=== PATIENT | female | born 1950 | race Caucasian/White ===

== ENCOUNTER → 2017-11-17 | Outpatient (CLI) | payer MEDICARE, OTHER ==
[~2017-11-17] MED LIST: AMOX-559 PO; AUG500 PO; BEN10 PO; BENA5TAB32 PO; CHOL100058 PO; CYCL1DRO6 OU; ERGO2000 PO; ESTR-33 PO; ESTR0.62 PO; FLU45SYR17 IM; FLU45SYR25 IM ONLY; HCTZ25 PO; HYDR-2966 PO; LOR5 PO; LOR5/325 PO; MELO-207 PO; METF-410 PO; METH4TAB66 PO; OSE75 PO; PNEU0.5D3 IM; POTA2.5T7 PO; POTA20TA85 PO; PRE20 PO; RANI-324 PO; SPIR1TAB28 PO; TRAZ-156 PO; ZOST19404 SQ
--- NOTE | 2017-11-17 16:44 | RADIOLOGY IMAGING REPORT ---
[place] [facility] [place] NAME: Ferny Krause : 1950 MR: [id number] V: [id number] EXAM DATE: ORDERING PHYSICIAN: SANCHEZ VELA TECHNOLOGIST: Location: [facility] Patient: Ferny Krause : 1950 Visit/Account:[id number] Date of Sevice: 11/17/2017 DEXA Scan Clinical history: Asymptomatic postmenopausal state. Comparison: DEXA scan from 07/01/2007. LUMBAR SPINE: The bone mineral density (BMD) measured from L1-L4 correlates with a Z-score of 2.2 and a T-score of 1.4 which is Normal as defined by the World Health Organization. The corresponding risk of fracture in the lumbar spine is Not increased compared with a young adult reference population. This value torres s increased by 2.4 % since the prior study. More than 5% change is considered significant. HIP: Bone mineral density (BMD) measured in the LEFT total hip region correlates with a Z-score 0.8 and a T-score of zero which is normal as defined by the World Health Organization. The corresponding risk of fracture in the hip is Not i ncreased compared to a young adult reference population. This value has decreased by 6.7 % since the prior study. More than 5% change is considered significant. T score left femoral neck -1.3 Bone mineral density (BMD) measured in the Femoral Neck region measures 0.851 g/cm?. IMPRESSION: 1. Lumbar spine: Normal. There has been 2.4% increase in the bone mineral density since the previou s exam. 2. Left Total Hip: Normal. There has been 6.7% decrease in the bone mineral density since the previ ous exam. 3. Femoral Neck: Bone Mineral Density is 0.851 g/cm? The next DEXA scan of this patient should include the following sites: L1-L4 and the left hip. FRAX? WHO Fracture Risk Assessment Tool link: <http://www.shef.ac.uk/FRAX/tool.jsp?locationValue=9> PLEASE NOTE: 1) The World Health Organization defines low BMD as follows: T-score Normal > -1 Osteopenia < -1 and > -2.5 Osteoporosis < -2.5 without fractures Established osteoporosis < -2.5 with fractures 2) In general, you may wish to consider: Diagnosis Treatment Follow-up DEXA Normal BMD Prevention 2-3 years Osteopenia Prevention/therapy 1-2 years Osteoporosis Therapy Yearly 3) Fracture risk estimated from the T-score is more accurate for vertebral fractures (often spontane ous) than for hip fractures. Report Dictated By: Danita Reyes MD at 11/17/2017 4:39 PM Report E-Signed By: Danita Reyes MD at 11/17/2017 4:40 PM WSN:[email or web address]
--- NOTE | 2017-12-01 09:55 | RADIOLOGY IMAGING REPORT ---
FACILITY: [facility] - [place] PATIENT NAME: PERI HERNANDEZ : [id number] MR: [id number] V: [id number] EXAM DATE: ORDERING PHYSICIAN: SANCHEZ VELA TECHNOLOGIST: Rebekah Polanco PROCEDURE:BILATERAL DIGITAL SCREENING MAMMOGRAM WITH CAD ASSISTED INTERPRETATION AND 3D BREAST TOMOSYNTHESIS. COMPARISON:Prior mammograms dated 12/23/12. INDICATIONS:SCREENING FINDINGS: Moderately heterogeneous fibroglandular tissue is seen throughout the breasts. The parenchymal pattern has remained stable when allowing for difference in mammographic technique and patient positioning. There is no evidence of malignant appearing mass, malignant appearing calcification or secondary sign of malignancy in either breast. DIAGNOSTIC CATEGORY 2--BENIGN FINDING. RECOMMENDATIONS: ROUTINE MAMMOGRAM AND CLINICAL EVALUATION. IMPRESSION: BI-RADS 2: No significant abnormality seen. Images were reviewed with R2CAD and 3D breast tomosynthesis. Dictated by: Danita Reyes M.D. on 11/17/2017 at 16:27 Transcribed by: SHABNAM on 11/18/2017 at 15:58 Approved by: Danita Reyes M.D. on 12/01/2017 at 9:54 [facility]
== END ==
LOC: MAMO 01:46
PROVIDERS: ATTEND Nurse Practitioner Family
DX: Z13.820 Encounter for screening for osteoporosis (principal); Z12.31 Encounter for screening mammogram for malignant neoplasm of breast; Z78.0 Asymptomatic menopausal state; I10 Essential (primary) hypertension; E11.9 Type 2 diabetes mellitus without complications
CPT/HCPCS: 36415; 77063; 77067; 77080

== ENCOUNTER → 2017-11-18 | Outpatient (CLI) | payer MEDICARE, OTHER ==
[2017-11-18 08:54] LABS: LDL CHOLESTEROL 141 mg/dl
== END ==
LOC: LAB 08:09
PROVIDERS: ATTEND Nurse Practitioner Family
DX: I10 Essential (primary) hypertension (principal); E11.9 Type 2 diabetes mellitus without complications
CPT/HCPCS: 36415; 82040; 82247; 82310; 82374; 82435; 82465; 82565; 82947; 83036; 83718; 84075; 84132; 84155; 84295; 84450; 84460; 84478; 84520

== ENCOUNTER → 2018-07-06 | Outpatient (CLI) | payer MEDICARE, OTHER ==
[~2018-07-06] MED LIST changes: +ASCO-182 PO; +BENA10TA55 PO; -BENA5TAB32 PO; +BENA5TAB33 PO; +CALC600T63 PO; +CARB15DR72 OP; +CHOL200074 PO; +DICL100G39 TOP; -METF-410 PO; +METF-450 PO; +OXYGENHOME INH; -RANI-324 PO; +RANI-366 PO; -TRAZ-156 PO; +TRAZ50TA34 PO
[2018-07-06 09:05] LABS: PLATELET COUNT, AUTOMATED 304 K/uL (150-450)
--- NOTE | 2018-07-06 09:19 | EKG ---
FACILITY: [facility] [place] PATIENT NAME: PERI HERNANDEZ : [id number] MR: [id number] V: [id number] EXAM DATE: ORDERING PHYSICIAN: JUAN MCKINNEY TECHNOLOGIST: YNES Caldwell Reason : PRE-OP KNEE Blood Pressure : / mmHG Vent. Rate : 070 BPM Atrial Rate : 070 BPM P-R Int : 176 ms QRS Dur : 086 ms QT Int : 396 ms P-R-T Axes : 028 -13 019 degrees QTc Int : 427 ms Sinus rhythm Left axis deviation Poor R wave progression anteriorly No previous ECGs available Confirmed by KACI NEWMAN ([id number]) on 07/06/2018 11:17:06 AM Referred By: HANK Confirmed By:KACI NEWMAN
== END ==
LOC: LAB 08:36
PROVIDERS: ATTEND Orthopaedic Surgery
DX: M17.12 Unilateral primary osteoarthritis, left knee (principal); Z01.812 Encounter for preprocedural laboratory examination
CPT/HCPCS: 36415; 81001; 82040; 82247; 82310; 82374; 82435; 82565; 82947; 84075; 84132; 84155; 84295; 84450; 84460; 84520; 85025; 93005

== ENCOUNTER 2018-07-20 00:10 | Inpatient (IN) | payer MEDICARE, OTHER ==
[2018-07-19 13:50] LABS: INR 1.01
[~2018-07-20] VITALS: Ht 162.6 cm; Wt 89.8 kg
[2018-07-20] VITALS (13 sets, daily range): BP systolic 91–156; BP diastolic 49–92; Ht 162.6 cm; Wt 89.8 kg
[~2018-07-20 00:10] MED LIST changes: +NYST15PO4 TP
--- NOTE | 2018-07-20 07:53 | LEVENE H&P ---
DATE OF ADMISSION: July 20, 2018 IDENTIFICATION/CHIEF COMPLAINT The patient is a 68-year-old woman with a chief complaint of left knee pain. HISTORY OF PRESENT ILLNESS Sania has a longstanding history of knee arthritis progressively painful and debilitating, refractory to conservative care. Surgery is indicated to relieve symptoms after failure of nonoperative measures. PAST MEDICAL HISTORY 1. Occasional skipped heartbeat. 2. Hypertension, controlled on medication. 3. Sleep apnea. 4. Nighttime oxygen use. PAST SURGICAL HISTORY 1. Foot operation. 2. Cardiac catheterization. 3. Hysterectomy. FAMILY HISTORY Notable for mother and father both with cancer and father with heart disease. SOCIAL HISTORY Negative for tobacco and alcohol use. REVIEW OF SYSTEMS Negative. CURRENT MEDICATIONS 1. Benazepril 10 mg p.o. every day. 2. Spironolactone 0.5 mg p.o. 1/2 tablet daily. 3. Mobic one daily. 4. Various vitamins. 5. Kvcd-udy-kbxaetd Zantac one p.o. every day. ALLERGIES No known drug allergies. PHYSICAL EXAMINATION GENERAL: This is a healthy female. HEENT: Normocephalic, atraumatic. NECK: Supple. LUNGS: Clear. HEART: Regular. ABDOMEN: Soft. ORTHOPEDIC EXAMINATION Left knee is grossly stable with fusion present. Crepitus is noted. Extensor function is intact. Skin condition is good. She is stiffened on range. Calves are nontender. Neurovascular function is intact distally. Radiographs demonstrate end-stage knee arthritis. ASSESSMENT Left knee end-stage degenerative joint disease progressively painful and debilitating, refractory to conservative care. PLAN Per patient request, we are going to proceed with total knee arthroplasty. The nature of the procedure, the risks, benefits, the anticipated rehabilitative course were reviewed. All of the patient's questions were answered. Risks of the procedure include but are not limited to , major medical or anesthetic complication, infection, neurovascular injury, blood transfusion, stiffness, scarring, fracture or tendon rupture, instability, implant loosening, migration or failure, persistent or recurrent pain or symptoms, need for additional surgery and other unforeseen. She understands and wishes to proceed. A signed permit is placed in the chart. No guarantees are given or implied. RACHEL
[2018-07-20] MEDS ORDERED: fentaNYL CITR 100 MCG/2 ML AMP ONE (08:15)
[2018-07-20] MEDS ORDERED: PROPOFOL EMUL(*) 10MG/ML 20 ML 20 ML ONE (08:15)
[2018-07-20] MEDS ORDERED: DEXAMETHASONE SOD 4 MG/ML VIAL ONE (08:15)
[2018-07-20] MEDS ORDERED: LIDOCAINE MPF 1% 5 ML VIAL ONE (08:15)
[2018-07-20] MEDS ORDERED: ONDANSETRON 4 MG/2 ML VIAL ONE (08:15)
[2018-07-20] MEDS ORDERED: KETAMINE HCL 200 MG/20 ML MDV ONE (08:20)
[2018-07-20] MEDS ORDERED: cloNIDine EPIDUR INJ 100MCG/ML 40 MCG, ROPIVACAINE 0.5% 20 ML VIAL 25 ML, EPINEPHrine H... INJ ONE (08:45)
[2018-07-20] MEDS ORDERED: CELECOXIB 200 MG CAP PO ONE (08:45)
[2018-07-20] MEDS ORDERED: ceFAZolin(*) 2GM/D5W 50ML 50 ML IVPB ONE (08:45)
[2018-07-20] MEDS ORDERED: MIDAZOLAM 2 MG/2 ML VIAL IVP PRN (08:45)
[2018-07-20] MEDS ORDERED: LIDOCAINE/SOD BICARB 8.4% SYR ID ONE (08:45)
[2018-07-20] MEDS ORDERED: FAMOTIDINE 20 MG TAB PO ONE (08:45)
[2018-07-20] MEDS ORDERED: PREGABALIN 75 MG CAPSULE PO ONE (08:45)
[2018-07-20] MEDS ORDERED: ACETAMINOPHEN 500 MG TAB PO ONE (08:45)
[2018-07-20] MEDS ORDERED: NORMOSOL R SOLN(*) 1000 ML BAG 1,000 ML IV PRN ×2 (08:45→15:05)
[2018-07-20] MEDS ORDERED: TRANEXAMIC AC 1000 MG/10ML SDV 1,000 MG in DEXTROSE 5% 50 ML BAG 50 ML IV ONE (08:45)
[2018-07-20] MEDS ORDERED: VANCOMYCIN 1 GM VIAL ONE (09:01)
--- NOTE | 2018-07-20 14:04 | RADIOLOGY IMAGING REPORT ---
FACILITY: [facility] [place] PATIENT NAME: Ferny Krause : 1950 MR: [id number] V: [id number] EXAM DATE: ORDERING PHYSICIAN: JUAN MCKINNEY TECHNOLOGIST: Location: [facility] Patient: Ferny Krause : 1950 Visit/Account:[id number] Date of Sevice: 07/20/2018 Exam type: KNEE LIMITED LEFT History: post-op placement Comparison: None. Findings: Two views the left knee demonstrate a left knee arthroplasty in good anatomic alignment. Soft tissue gas and skin emani project over the anterior aspect of the postoperative knee IMPRESSION: 1. As above Report Dictated By: Danita Reyes MD at 07/20/2018 1:59 PM Report E-Signed By: Danita Reyes MD at 07/20/2018 2:00 PM WSN:[email or web address]
[2018-07-20] MEDS ORDERED: TRAZ50TA34 PO (14:06)
[2018-07-20] MEDS ORDERED: traZODone HCL 50 MG TAB PO PRN (14:45)
--- NOTE | 2018-07-20 14:53 | Hospitalist Consultation ---
History of Present Illness Requesting Physician Dr. Desai Reason for Consult Medical Management Chief Complaint s/p left total knee replacement History of Present Illness She was admitted s/p left total knee replacement. It is reported the surgery went well and without complication. History Problems: (1) Sleep apnea Status: Chronic (2) Hypertension, benign Status: Chronic (3) Insomnia Status: Chronic Home Meds Active Scripts Meloxicam (MELOXICAM) 15 Mg Tablet, 1 TAB PO QDAY, #90 TAB 4 Refills Prov:JOSÉ MIGUEL BRADSHAW MD 07/08/18 Benazepril Hcl (BENAZEPRIL HCL) 10 Mg Tab, 10 MG PO QDAY for 90 Days, #90 TAB Prov:JOSÉ MIGUEL BRADSHAW MD 04/28/18 Spironolact/Hydrochlorothiazid (SPIRONOLACTONE-HCTZ 25-25 TAB) 1 Each Tablet, 0.5 TAB PO QAM, #90 TAB 4 Refills Prov:JOSÉ MIGUEL BRADSHAW MD 04/28/18 Reported Medications Trazodone Hcl (TRAZODONE HCL) 50 Mg Tablet, 0.5-1 TAB PO QHS PRN for INSOMNIA 07/20/18 Oxygen (OXYGEN) Inha, 2 L INH HS, L Via NC 04/28/18 Ascorbic Acid (VITAMIN C) 500 Mg Tablet, 1 TAB PO PRN, TAB 04/28/18 Cholecalciferol (Vitamin D3) (VITAMIN D-3) 2,000 Unit Capsule, 1 CAP PO DAILY, CAPSULE 04/28/18 Carboxymethylcellulose Sodium (REFRESH TEARS) 15 Ml Drops, 1 DROP OP PRN 04/28/18 Ranitidine Hcl (ZANTAC) 150 Mg Tablet, 1 TAB PO QHS 06/22/17 Discontinued Reported Medications Calcium Carbonate (CALCIUM) 600 Mg Tablet, 1 TAB PO DAILY 04/28/18 Discontinued Scripts Nystatin 100,000 Unit/Gm Top Powder (NYSTATIN 100,000 UNIT/GM TOP POWDER) 15 Gm Powder, 15 GM TP BID for 30 Days, #1 TUBE 4 Refills Prov:JOSÉ MIGUEL BRADSHAW MD 07/08/18 Diclofenac Sodium 1% Gel (VOLTAREN 1% GEL) 100 Gm Gel..gram., 2 GM TOP TID for 30 Days, #1 TUBE Prov:JOSÉ MIGUEL BRADSHAW MD 05/17/18 Trazodone Hcl (TRAZODONE HCL) 50 Mg Tablet, 0.5-1 TAB PO QHS, #30 TAB 5 Refills Prov:SANCHEZ VELA APRN [employer] 06/22/17 Allergies: Coded Allergies: No Known Drug Allergies (Verified , 07/12/18) Patient History: Bone cancer FATHER, , Age:76 (Heart cancer) Diabetes mellitus (DM) MOTHER, , Age:76 FH: lung cancer MOTHER, , Age:76 Heart cancer FATHER, , Age:76 Hypertension BROTHER OR SISTER, Age:unk Hx Smoking: No Smoking Status: Never Smoker Caffeine Intake: Coffee Caffeine/Cups Per Day: 1 Hx Alcohol Use: No Hx Substance Use Disorder: No Social Drug Use: Never History of IV Drug Use: No Review of Systems All Systems Reviewed/Normal: Yes, Except as Noted Exam Vital Signs Vital Signs Date Time Temp Pulse Resp B/P (MAP) Pulse Ox O2 Delivery O2 Flow Rate FiO2 07/20/18 13:41 92 Nasal Cannula 2.0 07/20/18 13:37 97.5 62 18 117/70 (86) General Appearance: Alert, Awake, No Acute Distress, Afebrile Neuro: No Gross deficits Cardiovascular: Regular Rate and Rhythm Respiratory: No Respiratory Distress, Clear to Auscultation GI: Abd Soft and Non-Tender Psych: Alert & Oriented X3, Appropriate Mood & Affect Assessment and Plan Problems: (1) Status post total left knee replacement Status: Acute Assessment & Plan: She will be placed on Aspirin for DVT prophylaxis. She has no history of DVT or PE. (2) Hypertension, benign Status: Chronic Assessment & Plan: She is on chronic treatment with Benazepril, Spironolactone, and Hydrochlorothiazide. Benazepril and Spironolactone have been restarted with hold parameters. (3) Sleep apnea Status: Chronic Assessment & Plan: She is on chronic treatment with oxygen, 2L at night. She admits to not being very compliant with oxygen use at night. (4) Insomnia Status: Chronic Assessment & Plan: She is on chronic treatment with Trazodone as needed. Venous Thromboembolism Antithrombotics Is Pt On Any Antithrombotics?: No Exam Sepsis Risk: No Definite Risk FILOMENA AVILA [employer] Jul 20, 2018 14:52
[2018-07-20] MEDS ORDERED: BENZOCAINE/MENTHOL 1 EACH LOZG PO PRN (15:05)
[2018-07-20] MEDS ORDERED: BISACODYL 10 MG SUPP PR PRN (15:05)
[2018-07-20] MEDS ORDERED: diphenhydrAMINE 50 MG/ML VIAL IVP PRN (15:05)
[2018-07-20] MEDS ORDERED: MAGNESIUM HYDROXIDE* 30ML UDCP PO PRN (15:05)
[2018-07-20] MEDS ORDERED: ACETAMINOPHEN 325 MG TAB PO PRN (15:05)
[2018-07-20] MEDS ORDERED: diphenhydrAMINE 25 MG CAP PO PRN (15:05)
[2018-07-20] MEDS ORDERED: FLUSH 10 ML SYR IVP PRN (15:05)
[2018-07-20] MEDS ORDERED: ZOLPIDEM TARTRATE 5 MG TAB PO PRN (15:05)
[2018-07-20] MEDS ORDERED: PROMETHAZINE 25 MG/ML 1 ML AMP IVP PRN (15:05)
[2018-07-20] MEDS: APAP/HYDROCODONE 325/7.5 TAB PO PRN ×2 (15:48→20:55)
[2018-07-20] MEDS: CELECOXIB 200 MG CAP PO SCH (17:09)
[2018-07-20] MEDS ORDERED: NS(*) 0.9% 250 ML BAG 250 ML IV PRN (17:20)
[2018-07-20] MEDS: ceFAZolin(*) 1 GM VIAL 1 GM in NS(*) 0.9% 100 ML ADDVANT BAG 100 ML IVPB SCH (18:25)
[2018-07-20] MEDS: RANITIDINE HCL 150 MG TAB PO SCH (20:55)
--- NOTE | 2018-07-20 23:30 | OPERATIVE REPORT 1 ---
EVENT DATE: July 20, 2018 SURGEON: Jadon Desai MD ANESTHESIOLOGIST: Rommel Marrufo MD ANESTHESIA: Spinal with general. RESEARCH CHEF: James Roblero PA-C PREOPERATIVE DIAGNOSIS Left knee DJD POSTOPERATIVE DIAGNOSIS Left knee DJD PROCEDURE PERFORMED Left total knee arthroplasty. ESTIMATED BLOOD LOSS minimal DRAINS none SPECIMENS none COMPLICATIONS none TOURNIQUET TIME 50 minutes IMPLANTS USED [place] Triathlon system 4 Left PS Femoral 4 standard tibial baseplate 11 PS line insert S33 [place] Symmetric Patella bearing INDICATIONS Patient has a long-standing history of left knee arthritis, progressively painful and disabling, refractory to conservative care. Surgery is indicated to relieve symptoms after failure of nonoperative measures. DESCRIPTION OF PROCEDURE Patient taken to the operating room and placed supine on the operating table. Spinal block is administered by the anesthesiologist. General anesthesia is induced. Antibiotics and are administered IV along with TXA. Left lower extremity is prepped and draped in the usual sterile fashion for knee arthroplasty. Limb is exsanguinated with an Esmarch bandage. Tourniquet is inflated to 250 mmHg. Midline longitudinal incision is made, carried down through the skin and subcutaneous tissue to the extensor mechanism. Full- thickness flaps are developed far enough medially to allow medial parapatellar arthrotomy be performed. Patella is everted. Knee is brought into the flexed position. Fat pad, anterior horns of the menisci, and the cruciate ligaments are debrided. A subperiosteal capsule release is performed circumferentially 1 cm on the upper plateau to start to balance the knee. A step drill is used to enter the distal femur. A 10-inch long alignment guide is used to engage the isthmus, cut set for 6 degrees of valgus relative to the anatomic axis. A 10 mm resection block is applied, pinned, and cuts made with an oscillating saw. AP sizing guide is applied to the distal femoral cut, positioned for 3 degrees of external rotation relative to the posterior condyles. Size 4 is optimum without risk of notching. The four-in-one cutting block is applied. Anterior, posterior, posterior chamfer, and anterior chamfer cuts are made respectively. PS block is applied and centered. Medial and lateral bone is removed through the box. Trial femur has nice [id number] fit. Attention is turned to tibial preparation. The extramedullary guide is applied, positioned for varus, valgus, posterior slope, and rotation. This is set to resect 9 mm from the relatively intact lateral tibial plateau. It is dropped down a couple millimeters to ensure an adequate cut. Block is pinned. Extramedullary alignment check is made, and the cuts are made with an oscillating saw. Gaps are balanced and symmetric with no additional releases required. The size 4 tibial baseplate provides optimum bony coverage without soft tissue overhang. This is inserted along with the trial liner and the trial femur. Knee is brought to extension. Patella is taken from a starting thickness of 20 to a residual of 14 with a patellar clamp and oscillating saw. The size 33 provides optimum bony coverage without soft tissue overhang. Lug holes are drilled. Patella tracks nicely with the no-touch technique. Final tibial preparation consists of assuring appropriate rotational and translational positioning of the component. Boss is reamed. Fin is punched. Surfaces are lavaged and dried. Mixed methacrylate is made. Components cemented in a single stage. Once the cement is fully polymerized, tourniquet is deflated. Hemostasis is assured. Wound is copiously lavaged. The 11 tibial tray liner fills up the gap ideally, allowing the knee to drop to full extension without hyperextension, providing optimal soft tissue tension and stability. The tray is lavaged and dried, and the actual liner is locked into the baseplate. Joint is reduced. Arthrotomy is closed in flexion with #2 Ethibond, subcutaneous tissue with 3-0 Vicryl, skin with surgical emani. Xeroform and 4 x 4's applied as a dry, sterile dressing and compression wrap. The patient was awakened from anesthesia and taken to the recovery room in stable condition having tolerated the procedure well. Plan is for standard TKA rehab protocol. [facility]
[2018-07-21] MEDS: DIAZEPAM 5 MG TAB PO PRN ×3 (00:13→22:11)
[2018-07-21] MEDS: ceFAZolin(*) 1 GM VIAL 1 GM in NS(*) 0.9% 100 ML ADDVANT BAG 100 ML IVPB SCH ×2 (01:54→10:17)
[2018-07-21] MEDS: APAP/HYDROCODONE 325/7.5 TAB PO PRN ×4 (04:29→20:50)
[2018-07-21 04:30] VITALS: BP 114/79
[2018-07-21 07:37] VITALS: BP 125/78
[2018-07-21] MEDS: ASPIRIN 325 MG TAB PO SCH (08:53)
[2018-07-21] MEDS: CELECOXIB 200 MG CAP PO SCH ×2 (08:53→17:46)
[2018-07-21] MEDS: BENAZEPRIL HCL 10 MG TAB PO SCH (09:00)
[2018-07-21] MEDS: SPIRONOLACTONE 25 MG TAB PO SCH (09:00)
[2018-07-21] MEDS ORDERED: ASPIRIN 325 MG TAB PO SCH (09:00)
--- NOTE | 2018-07-21 10:54 | Hospitalist Progress Note ---
Subjective Progress Notes Subjective She has no complaints this morning. She had no acute events overnight. Patient Complains of: Cardiovascular: No: Chest Pain Respiratory: No: Shortness of Breath Physical Exam Vital Signs Date Time Temp Pulse Resp B/P (MAP) Pulse Ox O2 Delivery O2 Flow Rate FiO2 07/21/18 07:41 92 Room Air 07/21/18 07:37 97.5 48 14 125/78 (94) 07/21/18 04:30 1.0 Intake and Output 07/21/18 07:00 Intake Total 5100 ml Balance 5100 ml Intake Oral 1100 ml IV Total 2000 ml Other 2000 ml # Voids 3 General Appearance: Alert, Awake, No Acute Distress, Afebrile Neuro: No Gross deficits Cardiovascular: Regular Rate and Rhythm Respiratory: No Respiratory Distress, Clear to Auscultation Psych: Alert & Oriented X3, Appropriate Mood & Affect Assessment and Plan Problems: (1) Status post total left knee replacement Status: Acute Assessment & Plan: She will be placed on Aspirin for DVT prophylaxis. She has no history of DVT or PE. (2) Hypertension, benign Status: Chronic Assessment & Plan: She is on chronic treatment with Benazepril, Spironolactone, and Hydrochlorothiazide. Benazepril and Spironolactone have been restarted with hold parameters. (3) Sleep apnea Status: Chronic Assessment & Plan: She is on chronic treatment with oxygen, 2L at night. She admits to not being very compliant with oxygen use at night. (4) Insomnia Status: Chronic Assessment & Plan: She is on chronic treatment with Trazodone as needed. Exam Sepsis Risk: No Definite Risk FILOMENA AVILAP Jul 21, 2018 10:54
[2018-07-21 12:19] VITALS: BP 131/83
[2018-07-21 20:45] VITALS: BP 123/59
[2018-07-21] MEDS: RANITIDINE HCL 150 MG TAB PO SCH (20:50)
[2018-07-22] MEDS: APAP/HYDROCODONE 325/7.5 TAB PO PRN ×3 (01:34→09:25)
[2018-07-22 01:35] VITALS: BP 113/78
[2018-07-22 05:48] VITALS: BP 134/75
[2018-07-22 08:24] VITALS: BP 110/62
[2018-07-22] MEDS: ASPIRIN 325 MG TAB PO SCH (08:25)
[2018-07-22] MEDS: CELECOXIB 200 MG CAP PO SCH (08:25)
[2018-07-22] MEDS: SPIRONOLACTONE 25 MG TAB PO SCH (08:52)
[2018-07-22] MEDS: BENAZEPRIL HCL 10 MG TAB PO SCH (08:52)
[2018-07-22] MEDS ORDERED: HYDR-654 PO (10:18)
--- NOTE | 2018-07-22 11:24 | Hospitalist Progress Note ---
Subjective Progress Notes Subjective She has no complaints this morning. She had no acute events overnight. Patient Complains of: Cardiovascular: No: Chest Pain Respiratory: No: Shortness of Breath Physical Exam Vital Signs Date Time Temp Pulse Resp B/P (MAP) Pulse Ox O2 Delivery O2 Flow Rate FiO2 07/22/18 10:30 91 07/22/18 08:41 Room Air 07/22/18 08:24 98.3 69 16 110/62 (78) 07/21/18 20:45 2.0 Intake and Output 07/22/18 06:59 Intake Total 462 ml Balance 462 ml Intake Oral 462 ml # Voids 3 General Appearance: Alert, Awake, No Acute Distress, Afebrile Neuro: No Gross deficits Cardiovascular: Regular Rate and Rhythm Respiratory: No Respiratory Distress, Clear to Auscultation GI: Soft and Non-Tender Psych: Alert & Oriented X3, Appropriate Mood & Affect Assessment and Plan Problems: (1) Status post total left knee replacement Status: Acute Assessment & Plan: She will be placed on Aspirin for DVT prophylaxis. She has no history of DVT or PE. (2) Hypertension, benign Status: Chronic Assessment & Plan: She is on chronic treatment with Benazepril, Spironolactone, and Hydrochlorothiazide. Benazepril will be continued, but she will wait 2 days to resume Spironolactone, and Hydrochlorothiazide. If she feels dizzy, she will follow up with PCP and stop her medication. (3) Sleep apnea Status: Chronic Assessment & Plan: She is on chronic treatment with oxygen, 2L at night. She admits to not being very compliant with oxygen use at night. (4) Insomnia Status: Chronic Assessment & Plan: She is on chronic treatment with Trazodone as needed. Exam Sepsis Risk: No Definite Risk FILOMENA AVILA [employer] Jul 22, 2018 11:24
[2018-07-22] MEDS: DIAZEPAM 5 MG TAB PO PRN (11:25)
== END 2018-07-22 11:45 | disposition home or self-care (01) | DRG 470 ==
LOC: OR 00:10 → MED 12:35 → UNDOADMIN 12:35 → MED 13:35
PROVIDERS: ADMIT Orthopaedic Surgery; ATTEND Orthopaedic Surgery
PROC: 0SRD0J9 Replacement of Left Knee Joint with Synthetic Substitute, Cemented, Open Approach (ICD-10-PCS; principal; 2018-07-20 10:12)
DX: M17.11 Unilateral primary osteoarthritis, right knee (principal); I10 Essential (primary) hypertension; K21.9 Gastro-esophageal reflux disease without esophagitis; G47.33 Obstructive sleep apnea (adult) (pediatric); Z99.81 Dependence on supplemental oxygen; G47.00 Insomnia, unspecified; Z90.710 Acquired absence of both cervix and uterus; Z91.14 Patient's other noncompliance with medication regimen
CPT/HCPCS: 36415; 85610; 86850; 86900; 86901; 97161; C1713; C1776; J0171; J0690; J0735; J1100; J1885; J2001; J2250; J2405; J2704; J2795; J3010; J3370; J3490; J7050; J7060

== ENCOUNTER → 2018-07-30 | Outpatient (CLI) | payer MEDICARE, OTHER ==
[2018-07-20 15:09] VITALS: BMI 34.0
[~2018-07-30] MED LIST changes: +HYDR-654 PO
--- NOTE | 2018-07-30 12:08 | RADIOLOGY IMAGING REPORT ---
FACILITY: [facility] PATIENT NAME: Ferny Krause : 1950 MR: [id number] V: [id number] EXAM DATE: ORDERING PHYSICIAN: JUAN MCKINNEY TECHNOLOGIST: Location: [facility] [place] Patient: Ferny Krause : 1950 Visit/Account:[id number] Date of Sevice: 07/30/2018 VENOUS DOPP LOW LEFT EXTREMITY HISTORY: Swelling. Recent surgery. COMPARISON: None. FINDINGS: Grayscale, duplex and color Doppler interrogation of the left lower extremity deep veins from common femoral vein to proximal calf was completed. Common femoral vein: Negative. Femoral vein: Negative. Deep femoral vein: Negative. Popliteal vein: Negative. Visualized calf veins: Negative. Popliteal fossa: Negative. Greater saphenous vein in the proximal thigh: Negative. Other findings: None significant IMPRESSION: 1. Negative for deep venous thrombosis within the left lower extremity. Report Dictated By: Randall Manzano MD at 07/30/2018 12:01 PM Report E-Signed By: Randall Manzano MD at 07/30/2018 12:02 PM WSN:[id number]
== END ==
LOC: US 10:41
PROVIDERS: ATTEND Orthopaedic Surgery
DX: M79.662 Pain in left lower leg (principal)

== ENCOUNTER → 2018-10-18 | Outpatient (CLI) | payer MEDICARE, OTHER ==
[2018-07-20 15:09] VITALS: BMI 34.0
[~2018-10-18] MED LIST changes: +FLU180SY11 IM; +MIRT7.5T2 PO
== END ==
LOC: LAB 10:34
PROVIDERS: ATTEND Family Medicine
DX: E11.9 Type 2 diabetes mellitus without complications (principal); I10 Essential (primary) hypertension
CPT/HCPCS: 36415; 82310; 82374; 82435; 82565; 82947; 83036; 84132; 84295; 84520